=== PATIENT | female | born 1990 | race Caucasian/White ===

== ENCOUNTER 2016-10-02 15:32 | Emergency (ER) | payer OTHER ==
[2016-10-02 15:56] VITALS: RESP 18; TEMP 97.9
--- NOTE | 2016-10-02 16:18 | ED ---
General Adult HPI - General Chief complaint: Dental/Oral Stated complaint: Dental/Oral Time Seen by Provider: 10/02/16 15:41 Source: patient, RN notes reviewed Mode of arrival: ambulatory Limitations: no limitations - History of Present Illness Initial comments: Is a 18-year-old female presents with right lower dental pain. Patient states she thinks her wisdom tooth on the right lower side coming in. Patient states she has noticed some drainage. Patient states she's had chills but no measured fever. Patient is unsure if she could be today. Patient denies any recent fever, chills, shortness breath, chest pain, abdominal pain, nausea/ vomiting/diarrhea, back pain, numbness, tingling, hematuria, headache, or visual changes, or any other complaints. - Related Data Home Medications Medication Instructions Recorded Confirmed Pregabalin [Lyrica] 200 mg PO BID 02/27/14 08/31/14 HYDROcodone/APAP 7.5-325MG [[place] 1 each PO Q4H PRN 08/31/14 08/31/14 7.5-325] Previous Rx's Medication Instructions Recorded Cephalexin [Keflex] 500 mg PO Q6HR #40 cap 08/31/14 Amoxicillin 500 mg PO Q12HR 5 Days 10/02/16 traMADol HCL [Ultram] 50 mg PO Q6HR #8 tab 10/02/16 Allergies Allergy/AdvReac Type Severity Reaction Status Date / Time diphenhydramine HCl Allergy Rash/Hives Verified 10/02/16 15:56 [From Benadryl] Review of Systems ROS Statement: Those systems with pertinent positive or pertinent negative responses have been documented in the HPI. ROS Other: All systems not noted in ROS Statement are negative. Past Medical History Past Medical History: Asthma, Fibromyalgia, Seizure Disorder History of Any Multi-Drug Resistant Organisms: None Reported Past Surgical History: Section Additional Past Surgical History / Comment(s): d &c Past Psychological History: Anxiety, Depression Smoking Status: Current every day smoker Past Alcohol Use History: None Reported Past Drug Use History: None Reported General Exam - General Exam Comments Initial Comments: General: The patient is awake and alert, in no distress, and does not appear acutely ill. Eye: Pupils are equal, round and reactive to light, extra-ocular movements are intact. No nystagmus. There is normal conjunctiva bilaterally. No signs of icterus. Ears: TMs pink and pearly with intact cone of light bilaterally. Normal external ear canals Nose: Nasal turbinates pink and moist Mouth and throat: right lower wisdom tooth appears to be coming in, there is some mild erythema to this area. There were multiple cavities noted on exam. No purulent drainage or odor. There is mild tenderness to palpation of the external right lower jaw. There are moist mucous membranes and no oral lesions. No facial swelling. Neck: The neck is supple, there is no tenderness or JVD. Cardiovascular: There is a regular rate and rhythm. No murmur, rub or gallop is appreciated. Respiratory: Lungs are clear to auscultation, respirations are non-labored, breath sounds are equal. No wheezes, stridor, rales, or rhonchi. Musculoskeletal: Normal ROM, no tenderness. Strength 5/5. Sensation intact. Radial pulses equal bilaterally 2+. Neurological: A&O x 3. CN II-XII intact, There are no obvious motor or sensory deficits. Coordination appears grossly intact. Speech is normal. Skin: Skin is warm and dry and no rashes or lesions are noted. Psychiatric: Cooperative, appropriate mood & affect, normal judgment. Limitations: no limitations Course Vital Signs 10/02/16 10/02/16 15:53 16:23 Temperature 97.9 F Pulse Rate 63 76 Respiratory 18 18 Rate Blood Pressure 159/100 141/97 O2 Sat by Pulse 96 100 Oximetry Medical Decision Making - Medical Decision Making Is a 26-year-old female presents with right-sided dental pain 2 days. On physical exam the right lower wisdom tooth appears to be coming in, there is some mild erythema to this area. There were multiple cavities noted on exam. No purulent drainage or odor. There is mild tenderness to palpation of the external right lower jaw. There are moist mucous membranes and no oral lesions. No facial swelling. Discussed the patient will be put on a course of antibiotics. A urine test was done was negative. Discussed [id number] Tylenol/motrin as needed for any pain. Patient given tramadol for breakthrough pain. Discussed the patient should follow-up with a dentist as soon as possible. Discussed return parameters. Patient was given phone numbers for dental referral. Discussed that patient should follow up with PCP in one to 2 days or return to the [facility] for any worsening symptoms or for any further concerns. Patient was receptive to this plan and patient will be discharged home. - Lab Data Lab Results 10/02/16 Range/Units 16:14 Urine HCG, Qual Not Detected (Not Detectd) Disposition Clinical Impression: Pain, dental Disposition: HOME SELF-CARE Condition: Good Instructions: Toothache (ED) Additional Instructions: Please use antibiotics as prescribed. Please use pain medication as prescribed. Use warm compresses to the area for pain. Please follow-up with dentist as soon as possible. Please follow up with PCP tomorrow or return to the [facility] for any worsening symptoms or for any further concerns.[facility] dental plan: [id number] [place] [address], . [employer]: Have to pay $50 for x-rays and the rest is covered. . Prescriptions: Amoxicillin 500 mg PO Q12HR 5 Days traMADol HCL [Ultram] 50 mg PO Q6HR #8 tab Referrals: Leeroy Lindquist MD [Primary Care Provider] - 1-2 days Time of Disposition: 16:37
[2016-10-02 16:26] VITALS: BP 141/97; PULSE 76
== END 2016-10-02 16:48 | disposition home or self-care (01) ==
LOC: EC 15:32
DX: K08.89 Other specified disorders of teeth and supporting structures (principal); G40.909 Epilepsy, unspecified, not intractable, without status epilepticus; M79.7 Fibromyalgia; F17.200 Nicotine dependence, unspecified, uncomplicated; Z88.8 Allergy status to other drugs, medicaments and biological substances
CPT/HCPCS: 81025; 99282

== ENCOUNTER → 2016-12-11 | Outpatient (CLI) | payer OTHER ==
--- NOTE | 2016-12-11 10:43 | XR ---
EXAMINATION TYPE: XR KUB DATE OF EXAM ORDERED: 12/11/2016 10:33 AM HISTORY: N20.0 stone. COMPARISON: Previous study dated 05/25/2013. FINDINGS: The abdominal gas pattern is normal. There is no evidence of obstruction or free air. No u nusual calcifications are seen. IMPRESSION: NORMAL ABDOMEN.
== END | disposition home or self-care (01) ==
LOC: RADXRMAIN 10:21
PROVIDERS: ATTEND Urology
DX: N20.0 Calculus of kidney (principal)
CPT/HCPCS: 74000

== ENCOUNTER → 2017-01-18 | Outpatient (CLI) | payer OTHER ==
[~2017-01-18] MED LIST: SODIUM CHLORIDE 0.9% 250 ML in EMPTY BAG 1 BAG IV PRN; SODIUM CHLORIDE 0.9% 500 ML in EMPTY BAG 1 BAG IV PRN
[2017-01-18 11:56] VITALS: BP 126/77; PULSE 81; RESP 15; TEMP 98.1
== END ==
LOC: PROCWHC3 11:43
PROVIDERS: ATTEND Family Medicine
DX: N20.0 Calculus of kidney (principal); N39.0 Urinary tract infection, site not specified
CPT/HCPCS: 96365; J0696

== ENCOUNTER 2022-03-18 16:57 | Inpatient (IN) | payer OTHER ==
--- NOTE | 2022-03-18 17:09 | ED ---
General Adult HPI - General Chief complaint: Shortness of Breath Stated complaint: SOB Time Seen by Provider: 03/18/22 17:02 Source: patient, EMS Mode of arrival: EMS Limitations: no limitations - History of Present Illness Initial comments: Patient presents to the ED by ambulance for evaluation. Patient states that she has had increased dyspnea, right-sided chest pain and diffuse abdominal pain since this morning. 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 Patient states that she also has stage II kidney disease. Patient admits to also having a cough since yesterday. Patient denies Covid vaccination. Patient denies trauma or injury, fever or chills, headache, focal numbness/weakness/neuro deficit, neck/arm/jaw/back pain, pleuritic pain, hemoptysis, palpitations, dizziness, nausea/vomiting/diarrhea, constipation, bloody or melanotic stool, dysuria/hematuria/urinary frequency/urinary symptoms, decreased urine output, leg or calf pain, or any other symptoms or complaints. - Related Data Home Medications Medication Instructions Recorded Confirmed Furosemide [Lasix] 40 mg PO BID 03/18/22 03/18/22 Metoprolol Succinate [Metoprolol 25 mg PO DAILY 03/18/22 03/18/22 Succinate ER] Nicotine 7Mg/24Hr Patch [Habitrol] 1 patch TRANSDERM DAILY 03/18/22 03/18/22 lisinopriL [Zestril] 2.5 mg PO DAILY 03/18/22 03/18/22 Allergies Allergy/AdvReac Type Severity Reaction Status Date / Time amoxicillin Allergy Rash/Hives Verified 03/18/22 18:35 diphenhydramine HCl Allergy Anaphylaxis Verified 03/18/22 18:35 [From Benadryl] Penicillins Allergy Rash/Hives Verified 03/18/22 18:35 red dye Allergy Rash/Hives Verified 03/18/22 18:35 Review of Systems ROS Statement: Those systems with pertinent positive or pertinent negative responses have been documented in the HPI. ROS Other: All systems not noted in ROS Statement are negative. Past Medical History Past Medical History: Asthma, Fibromyalgia, Seizure Disorder Additional Past Medical History / Comment(s): OB history: one previous c/s. She has had 2 visits with her ob during this current . CHF, second stage kidney disease, liver issues- Pt is on heart transplant list. History of Any Multi-Drug Resistant Organisms: None Reported Past Surgical History: Section Additional Past Surgical History / Comment(s): d &c Past Psychological History: Anxiety, Depression Smoking Status: Current every day smoker Past Alcohol Use History: None Reported Past Drug Use History: None Reported - Past Family History Mother History Unknown: Yes General Exam Limitations: no limitations General appearance: alert, in no apparent distress Head exam: Present: atraumatic, normocephalic Eye exam: Present: normal appearance, EOMI ENT exam: Present: normal oropharynx, mucous membranes moist Neck exam: Present: other (Trachea is in midline) Respiratory exam: Present: normal lung sounds bilaterally. Absent: respiratory distress, wheezes, rales, rhonchi, stridor, chest wall tenderness Cardiovascular Exam: Present: normal rhythm, tachycardia, normal heart sounds, other (Normal radial pulses bilaterally) GI/Abdominal exam: Present: soft, distended, diminished bowel sounds, other (Moderate generalized abdominal tenderness). Absent: guarding, rebound Extremities exam: Present: other (1+ bilateral lower leg pitting edema; negative Homans sign bilaterally). Absent: tenderness, calf tenderness Neurological exam: Present: alert, oriented X3. Absent: motor sensory deficit Psychiatric exam: Present: normal affect, normal mood Skin exam: Present: warm, dry, intact Course Vital Signs 03/18/22 03/18/22 03/18/22 16:58 17:12 18:13 Temperature 97.7 F Pulse Rate 121 H 128 H Respiratory 24 24 18 Rate Blood Pressure 119/80 126/92 O2 Sat by Pulse 100 100 Oximetry 03/18/22 03/18/22 19:41 21:53 Temperature Pulse Rate 122 H 122 H Respiratory 18 18 Rate Blood Pressure 118/89 113/71 O2 Sat by Pulse 100 100 Oximetry - Reevaluation(s) Reevaluation #1: 03/18/22 21:51 Case, H&P, test results and ED management were discussed with Dr. Ortiz. He accepts hospital admission. He agrees with cardiology consultation and heparin anticoagulation. He has no further recommendations at this time. 03/18/22 21:59 Patient denies development of any new symptoms while in the ED. Patient and sister are aware the patient's test results, and patient agrees with hospital admission at this time. Patient remains alert and breathing comfortably with a normal room air oxygen saturation. EKG Findings - EKG Comments: EKG Findings:: Sinus tachycardia, ventricular rate of 122 bpm, no ectopy, normal OR and QRS intervals, normal QT interval, borderline rightward axis, nonspecific ST and T-wave abnormality Medical Decision Making - Medical Decision Making I suspect that the patient's dyspnea, anasarca and lower extremity edema are likely secondary to CHF due to her peripartum cardiomyopathy. Patient's troponin is mildly elevated. Patient states that her chest pain has improved while in the ED. Patient was given a dose of aspirin and started on an IV heparin drip. Patient is breathing comfortably with a normal room air oxygen saturation. Given the patient's elevated lactic acid level (which I suspect it due to her cardiomyopathy), a small fluid bolus was administered in the ED. Dr. Ortiz was contacted by telephone, and he has accepted hospital admission. - Lab Data Result diagrams: 03/18/22 17:41 03/18/22 17:41 Lab Results 03/18/22 03/18/22 03/18/22 Range/Units 17:41 17:41 17:41 WBC 7.7 (3.8-10.6) k/uL RBC 5.35 (3.80-5.40) m/uL Hgb 11.9 (11.4-16.0) gm/dL Hct 41.5 (34.0-46.0) % MCV 77.6 L (80.0-100.0) fL MCH 22.2 L (25.0-35.0) pg MCHC 28.6 L (31.0-37.0) g/dL RDW 21.9 H (11.5-15.5) % Plt Count 283 (150-450) k/uL MPV 7.9 Neutrophils % 48 % Lymphocytes % 41 % Monocytes % 6 % Eosinophils % 1 % Basophils % 3 % Neutrophils # 3.7 (1.3-7.7) k/uL Lymphocytes # 3.2 (1.0-4.8) k/uL Monocytes # 0.5 (0-1.0) k/uL Eosinophils # 0.1 (0-0.7) k/uL Basophils # 0.2 (0-0.2) k/uL Manual Slide Review Performed Polychromasia Present Hypochromasia Marked Poikilocytosis Slight Poikilocytosis (manual Present Anisocytosis Moderate Microcytosis Moderate PT 14.0 H (9.0-12.0) sec INR 1.3 H (<1.2) APTT 25.3 (22.0-30.0) sec D-Dimer 4.19 H (<0.60) mg/L FEU Sodium 136 L (137-145) mmol/L Potassium 4.8 (3.5-5.1) mmol/L Chloride 99 (98-107) mmol/L Carbon Dioxide 25 (22-30) mmol/L Anion Gap 12 mmol/L BUN 21 H (7-17) mg/dL Creatinine 1.18 H (0.52-1.04) mg/dL Est GFR (CKD-EPI)AfAm 70 (>60 ml/min/1.73 sqM) Est GFR (CKD-EPI)NonAf 61 (>60 ml/min/1.73 sqM) Glucose 83 (74-99) mg/dL Lactic Ac Sepsis Rflx Plasma Lactic Acid Renato (0.7-2.0) mmol/L Calcium 8.9 (8.4-10.2) mg/dL Total Bilirubin 2.3 H (0.2-1.3) mg/dL AST 44 H (14-36) U/L ALT 32 (4-34) U/L Alkaline Phosphatase 93 (38-126) U/L Troponin I (0.000-0.034) ng/mL NT-Pro-B Natriuret Pep pg/mL Total Protein 7.1 (6.3-8.2) g/dL Albumin 3.7 (3.5-5.0) g/dL Lipase 231 (23-300) U/L HCG, Qual Not Detected Urine Color Urine Appearance (Clear) Urine pH (5.0-8.0) Ur Specific [place] (1.001-1.035) Urine Protein (Negative) Urine Glucose (UA) (Negative) Urine Ketones (Negative) Urine Blood (Negative) Urine Nitrite (Negative) Urine Bilirubin (Negative) Urine Urobilinogen (<2.0) mg/dL Ur Leukocyte Esterase (Negative) Urine RBC (0-5) /hpf Urine WBC (0-5) /hpf Ur Squamous Epith Cells (0-4) /hpf Hyaline Casts (0-2) /lpf Urine Mucus (None) /hpf Urine Opiates Screen (NotDetected) Ur Oxycodone Screen (NotDetected) Urine Methadone Screen (NotDetected) Ur Propoxyphene Screen (NotDetected) Ur Barbiturates Screen (NotDetected) U Tricyclic Antidepress (NotDetected) Ur Phencyclidine Scrn (NotDetected) Ur Amphetamines Screen (NotDetected) U Methamphetamines Scrn (NotDetected) U Benzodiazepines Scrn (NotDetected) Urine Cocaine Screen (NotDetected) U Marijuana (THC) Screen (NotDetected) Influenza Type A (PCR) (Not Detectd) Influenza Type B (PCR) (Not Detectd) RSV (PCR) (Not Detectd) SARS-CoV-2 (PCR) (Not Detectd) 03/18/22 03/18/22 03/18/22 Range/Units 17:41 17:41 17:41 WBC (3.8-10.6) k/uL RBC (3.80-5.40) m/uL Hgb (11.4-16.0) gm/dL Hct (34.0-46.0) % MCV (80.0-100.0) fL MCH (25.0-35.0) pg MCHC (31.0-37.0) g/dL RDW (11.5-15.5) % Plt Count (150-450) k/uL MPV Neutrophils % % Lymphocytes % % Monocytes % % Eosinophils % % Basophils % % Neutrophils # (1.3-7.7) k/uL Lymphocytes # (1.0-4.8) k/uL Monocytes # (0-1.0) k/uL Eosinophils # (0-0.7) k/uL Basophils # (0-0.2) k/uL Manual Slide Review Polychromasia Hypochromasia Poikilocytosis Poikilocytosis (manual Anisocytosis Microcytosis PT (9.0-12.0) sec INR (<1.2) APTT (22.0-30.0) sec D-Dimer (<0.60) mg/L FEU Sodium (137-145) mmol/L Potassium (3.5-5.1) mmol/L Chloride (98-107) mmol/L Carbon Dioxide (22-30) mmol/L Anion Gap mmol/L BUN (7-17) mg/dL Creatinine (0.52-1.04) mg/dL Est GFR (CKD-EPI)AfAm (>60 ml/min/1.73 sqM) Est GFR (CKD-EPI)NonAf (>60 ml/min/1.73 sqM) Glucose (74-99) mg/dL Lactic Ac Sepsis Rflx Plasma Lactic Acid Renato 5.5 H* (0.7-2.0) mmol/L Calcium (8.4-10.2) mg/dL Total Bilirubin (0.2-1.3) mg/dL AST (14-36) U/L ALT (4-34) U/L Alkaline Phosphatase (38-126) U/L Troponin I 0.107 H* (0.000-0.034) ng/mL NT-Pro-B Natriuret Pep 27688 pg/mL Total Protein (6.3-8.2) g/dL Albumin (3.5-5.0) g/dL Lipase (23-300) U/L HCG, Qual Urine Color Urine Appearance (Clear) Urine pH (5.0-8.0) Ur Specific [place] (1.001-1.035) Urine Protein (Negative) Urine Glucose (UA) (Negative) Urine Ketones (Negative) Urine Blood (Negative) Urine Nitrite (Negative) Urine Bilirubin (Negative) Urine Urobilinogen (<2.0) mg/dL Ur Leukocyte Esterase (Negative) Urine RBC (0-5) /hpf Urine WBC (0-5) /hpf Ur Squamous Epith Cells (0-4) /hpf Hyaline Casts (0-2) /lpf Urine Mucus (None) /hpf Urine Opiates Screen (NotDetected) Ur Oxycodone Screen (NotDetected) Urine Methadone Screen (NotDetected) Ur Propoxyphene Screen (NotDetected) Ur Barbiturates Screen (NotDetected) U Tricyclic Antidepress (NotDetected) Ur Phencyclidine Scrn (NotDetected) Ur Amphetamines Screen (NotDetected) U Methamphetamines Scrn (NotDetected) U Benzodiazepines Scrn (NotDetected) Urine Cocaine Screen (NotDetected) U Marijuana (THC) Screen (NotDetected) Influenza Type A (PCR) (Not Detectd) Influenza Type B (PCR) (Not Detectd) RSV (PCR) (Not Detectd) SARS-CoV-2 (PCR) (Not Detectd) 03/18/22 03/18/22 03/18/22 Range/Units 18:18 18:52 19:20 WBC (3.8-10.6) k/uL RBC (3.80-5.40) m/uL Hgb (11.4-16.0) gm/dL Hct (34.0-46.0) % MCV (80.0-100.0) fL MCH (25.0-35.0) pg MCHC (31.0-37.0) g/dL RDW (11.5-15.5) % Plt Count (150-450) k/uL MPV Neutrophils % % Lymphocytes % % Monocytes % % Eosinophils % % Basophils % % Neutrophils # (1.3-7.7) k/uL Lymphocytes # (1.0-4.8) k/uL Monocytes # (0-1.0) k/uL Eosinophils # (0-0.7) k/uL Basophils # (0-0.2) k/uL Manual Slide Review Polychromasia Hypochromasia Poikilocytosis Poikilocytosis (manual Anisocytosis Microcytosis PT (9.0-12.0) sec INR (<1.2) APTT (22.0-30.0) sec D-Dimer (<0.60) mg/L FEU Sodium (137-145) mmol/L Potassium (3.5-5.1) mmol/L Chloride (98-107) mmol/L Carbon Dioxide (22-30) mmol/L Anion Gap mmol/L BUN (7-17) mg/dL Creatinine (0.52-1.04) mg/dL Est GFR (CKD-EPI)AfAm (>60 ml/min/1.73 sqM) Est GFR (CKD-EPI)NonAf (>60 ml/min/1.73 sqM) Glucose (74-99) mg/dL Lactic Ac Sepsis Rflx Y Plasma Lactic Acid Renato (0.7-2.0) mmol/L Calcium (8.4-10.2) mg/dL Total Bilirubin (0.2-1.3) mg/dL AST (14-36) U/L ALT (4-34) U/L Alkaline Phosphatase (38-126) U/L Troponin I (0.000-0.034) ng/mL NT-Pro-B Natriuret Pep pg/mL Total Protein (6.3-8.2) g/dL Albumin (3.5-5.0) g/dL Lipase (23-300) U/L HCG, Qual Urine Color Dark Yellow Urine Appearance Cloudy H (Clear) Urine pH 6.0 (5.0-8.0) Ur Specific [place] 1.018 (1.001-1.035) Urine Protein 2+ H (Negative) Urine Glucose (UA) Negative (Negative) Urine Ketones Negative (Negative) Urine Blood Small H (Negative) Urine Nitrite Negative (Negative) Urine Bilirubin 1+ H (Negative) Urine Urobilinogen 4.0 (<2.0) mg/dL Ur Leukocyte Esterase Moderate H (Negative) Urine RBC 6 H (0-5) /hpf Urine WBC 16 H (0-5) /hpf Ur Squamous Epith Cells 4 (0-4) /hpf Hyaline Casts 16 H (0-2) /lpf Urine Mucus Rare H (None) /hpf Urine Opiates Screen Not Detected (NotDetected) Ur Oxycodone Screen Not Detected (NotDetected) Urine Methadone Screen Not Detected (NotDetected) Ur Propoxyphene Screen Not Detected (NotDetected) Ur Barbiturates Screen Not Detected (NotDetected) U Tricyclic Antidepress Not Detected (NotDetected) Ur Phencyclidine Scrn Not Detected (NotDetected) Ur Amphetamines Screen Detected H (NotDetected) U Methamphetamines Scrn Detected H (NotDetected) U Benzodiazepines Scrn Not Detected (NotDetected) Urine Cocaine Screen Not Detected (NotDetected) U Marijuana (THC) Screen Detected H (NotDetected) Influenza Type A (PCR) Not Detected (Not Detectd) Influenza Type B (PCR) Not Detected (Not Detectd) RSV (PCR) Not Detected (Not Detectd) SARS-CoV-2 (PCR) Not Detected (Not Detectd) - Radiology Data Chest x-ray: There is development of cardiomegaly and pleural fluid compared to old exam. Mild heart failure is possible. CT angiography chest with IV contrast: No evidence of pulmonary embolism. Cardiomegaly with pleural effusions probably related to chronic congestive heart failure. No suspicious pulmonary mass. CT abdomen/pelvis with IV contrast: Pleural effusions and abdominal ascites. Subcutaneous edema around the abdomen. This could be anasarca. Also consider chronic congestive heart failure. Delayed images show little renal excretion and suggestive of some degree of renal failure. Heterogeneity in the liver could relate to hepatitis. Critical Care Time Critical Care Time: Yes Total Critical Care Time: 30 Disposition Clinical Impression: Dyspnea, Abdominal pain, Chest pain, Elevated troponin, CHF (congestive heart failure), Polysubstance abuse, Ascites Disposition: ADMITTED IP TO THIS HOSP Condition: Stable Is patient prescribed a controlled substance at d/c from ED?: No Referrals: Leeroy Lindquist MD [Primary Care Provider] - 1-2 days Time of Disposition: 21:52
[2022-03-18 18:26] LABS: HCG,Qualitative Serum Not Detected
[2022-03-18 18:30] LABS: ALT 32 U/L (4-34); AST 44 U/L (14-36); African American GFR (CKD) 70 (>60 ml/min/1.73 sqM); Albumin 3.7 g/dL (3.5-5.0); Alkaline Phosphatase 93 U/L (38-126); Anion Gap 12 mmol/L; Blood Urea Nitrogen 21 mg/dL (7-17); Calcium 8.9 mg/dL (8.4-10.2); Carbon Dioxide 25 mmol/L (22-30); Chloride 99 mmol/L (98-107); Glucose 83 mg/dL (74-99); Lipase 231 U/L (23-300); Non-African American GFR(CKD) 61 (>60 ml/min/1.73 sqM); Potassium 4.8 mmol/L (3.5-5.1); Sodium 136 mmol/L (137-145); Total Bilirubin 2.3 mg/dL (0.2-1.3); Total Protein 7.1 g/dL (6.3-8.2)
[2022-03-18] MEDS ORDERED: MORPHINE SULFATE 4 MG/ML SYRINGE IVP STA (18:31)
[2022-03-18] MEDS ORDERED: ONDANSETRON 4 MG/2 ML VIAL IVP STA (18:33)
[2022-03-18 18:38] LABS: INR 1.3 (<1.2)
[2022-03-18 18:39] LABS: Partial Thromboplastin Time 25.3 sec (22.0-30.0)
--- NOTE | 2022-03-18 18:45 | XR ---
EXAMINATION TYPE: XR chest 2V DATE OF EXAM: 03/18/2022 COMPARISON: 04/15/2014 HISTORY: Short of breath TECHNIQUE: FINDINGS: Heart is enlarged. There is some blunting of the costophrenic angles. There are no hilar ma sses. There is minimal pulmonary congestion. There are chest leads. IMPRESSION: There is development of cardiomegaly and pleural fluid compared to old exam. mild heart f ailure is possible.
[2022-03-18 18:48] LABS: Anisocytosis Moderate; Basophils # (A) 0.2 k/uL (0-0.2); Basophils % (A) 3 %; Eosinophils # (A) 0.1 k/uL (0-0.7); Eosinophils % (A) 1 %; HCT 41.5 % (34.0-46.0); HGB 11.9 gm/dL (11.4-16.0); Hypochromasia Marked; Lymphocytes # (A) 3.2 k/uL (1.0-4.8); Lymphocytes % (A) 41 %; MCH 22.2 pg (25.0-35.0); MCHC 28.6 g/dL (31.0-37.0); MCV 77.6 fL (80.0-100.0); Mean Platelet Volume 7.9; Microcytosis Moderate; Monocytes # (A) 0.5 k/uL (0-1.0); Monocytes % (A) 6 %; Neutrophils # (A) 3.7 k/uL (1.3-7.7); Neutrophils % (A) 48 %; Platelet Count 283 k/uL (150-450); Poikilocytosis Slight; RBC 5.35 m/uL (3.80-5.40); RDW 21.9 % (11.5-15.5); WBC 7.7 k/uL (3.8-10.6)
[2022-03-18] MEDS ORDERED: ASPIRIN 81 MG PO STA (19:03)
[2022-03-18 19:05] LABS: Poikilocytosis (M) Present; Polychromasia Present
[2022-03-18 20:35] LABS: Appearance,Urine Cloudy (Clear); Bilirubin,Urine 1+ (Negative); Blood,Urine Small (Negative); Color,Urine Dark Yellow; Glucose,Urine (UA) Negative (Negative); Hyaline Casts,Urine 16 /lpf (0-2); Ketones,Urine Negative (Negative); Leukocyte Esterase,Urine Moderate (Negative); Mucus,Urine Rare /hpf; Nitrite,Urine Negative (Negative); Protein,Urine 2+ (Negative); RBC,Urine 6 /hpf (0-5); Specific Gravity,Urine 1.018 (1.001-1.035); Squamous Epithelial Cell,Urine 4 /hpf (0-4); WBC,Urine 16 /hpf (0-5)
[2022-03-18 20:53] LABS: Amphetamine Screen,Urine Detected (NotDetected); Barbiturate Screen,Urine Not Detected (NotDetected); Benzodiazepines Screen,Urine Not Detected (NotDetected); Cocaine Screen,Urine Not Detected (NotDetected); Methadone Screen, Urine Not Detected (NotDetected); Opiate Screen,Urine Not Detected (NotDetected); Oxycodone Screen, Urine Not Detected (NotDetected); Phencyclidine Screen,Urine Not Detected (NotDetected); Tricyclic Antidepressant,Urine Not Detected (NotDetected); Urn Cannabinoid Scrn Detected (NotDetected)
--- NOTE | 2022-03-18 21:41 | CT ---
EXAMINATION TYPE: CT chest angio for PE DATE OF EXAM: 03/18/2022 COMPARISON: None HISTORY: chest pain, dyspnea, elevated d-dimer. CT DLP: combined 1509.4 mGycm Automated exposure control for dose reduction was used. CONTRAST: Performed with IV Contrast, patient injected with 80ml mL of Isovue 370. There are Three-D postprocessed images. There are bilateral pleural effusions and larger on the right side. Heart appears slightly enlarged. There is normal contrast opacification of the pulmonary arteries. No filling defect. The thoracic aor ta appears intact. No aneurysm. No mediastinal adenopathy. There are no hilar masses. There is some a telectasis in both lung bases. The thoracic spine is intact. No compression fracture. IMPRESSION: No evidence of pulmonary embolism. Cardiomegaly with pleural effusions probably related to chronic congestive heart failure. No suspicio us pulmonary mass.
--- NOTE | 2022-03-18 21:44 | CT ---
EXAMINATION TYPE: CT abdomen pelvis w con DATE OF EXAM: 03/18/2022 COMPARISON: None HISTORY: abd pain, swelling CT DLP: combined 1509.4 mGycm Automated exposure control for dose reduction was used. CONTRAST: Performed with IV Contrast, patient injected with 80ml mL of Isovue 370. Images obtained from the diaphragm to the floor of the pelvis with IV contrast. There are moderate bilateral pleural effusions. Heart is enlarged. There is evidence for small perica rdial effusion. There is heterogeneity in the liver. No discrete mass seen. Spleen is intact. No great mass. Gallblad eulogio is intact. The bile ducts are not dilated. There is no adrenal mass. Kidneys show normal size and contour. No hydronephrosis. There is normal en hancement of the kidneys. Delayed images show little renal excretion. There is no retroperitoneal dina nopathy. Ureters are not dilated. There is moderate abdominal ascites fluid. Urinary bladder distends smoothly. No inguinal hernia. There is subcutaneous edema around the abdomen. Lumbar vertebra appear intact. No compression fracture. Bony pelvis is intact. The hip joints are intact. IMPRESSION: Pleural effusions and abdominal ascites. Subcutaneous edema around the abdomen. This could be anasarc a. Also consider chronic congestive heart failure. Delayed images show little renal excretion and suggestive of some degree of renal failure. Heterogeneity in the liver could relate to hepatitis.
[2022-03-18] MEDS ORDERED: HEPARIN SODIUM 1,000 UN/ML (10ML VL) IV ONE (21:46)
[2022-03-18] MEDS ORDERED: HEPARIN SODIUM 1,000 UN/ML (10ML VL) IV PRN (21:46)
[2022-03-18] MEDS ORDERED: NALOXONE 0.4 MG/ML 1 ML VIAL IV PRN (21:52)
[2022-03-18] MEDS ORDERED: HEPARIN SOD,PORK IN 0.45% NACL 25,000 UNIT in 0.45% NACL 1 250ML.BAG IV SCH (22:00)
[2022-03-18] MEDS: SODIUM CHLORIDE 0.9% 250 ML IV SCH (22:11)
[2022-03-18 22:32] LABS: INR 1.4 (<1.2); Partial Thromboplastin Time 23.8 sec (22.0-30.0); Prothrombin Time 14.7 sec (9.0-12.0)
[2022-03-18 22:48] LABS: Anisocytosis Moderate; Basophils # (A) 0.1 k/uL (0-0.2); Basophils % (A) 1 %; Eosinophils % (A) 1 %; HCT 37.2 % (34.0-46.0); Hypochromasia Marked; Lymphocytes # (A) 1.7 k/uL (1.0-4.8); Lymphocytes % (A) 28 %; MCH 23.1 pg (25.0-35.0); MCHC 29.6 g/dL (31.0-37.0); MCV 77.8 fL (80.0-100.0); Mean Platelet Volume 7.5; Microcytosis Moderate; Monocytes # (A) 0.3 k/uL (0-1.0); Monocytes % (A) 5 %; Neutrophils # (A) 3.9 k/uL (1.3-7.7); Neutrophils % (A) 65 %; Platelet Count 270 k/uL (150-450); Poikilocytosis Slight; RBC 4.78 m/uL (3.80-5.40); RDW 22.2 % (11.5-15.5)
[2022-03-19] MEDS: SODIUM CHLORIDE 0.9% 250 ML IV SCH ×4 (01:00→01:59)
[2022-03-19] MEDS ORDERED: FUROSEMIDE 10 MG/ML 4 ML VIAL IV STA ×2 (01:29→04:38)
[2022-03-19] MEDS: NICOTINE 7MG/24HR PATCH TRANSDERM SCH ×2 (01:45→09:30)
[2022-03-19 03:48] LABS: Anisocytosis Moderate; Basophils % (A) 1 %; Eosinophils % (A) 1 %; HCT 36.6 % (34.0-46.0); HGB 10.6 gm/dL (11.4-16.0); Hypochromasia Marked; Lymphocytes # (A) 2.2 k/uL (1.0-4.8); Lymphocytes % (A) 39 %; MCH 22.5 pg (25.0-35.0); MCHC 28.9 g/dL (31.0-37.0); MCV 78.1 fL (80.0-100.0); Microcytosis Moderate; Monocytes # (A) 0.3 k/uL (0-1.0); Monocytes % (A) 5 %; Neutrophils # (A) 2.9 k/uL (1.3-7.7); Neutrophils % (A) 52 %; Platelet Count 297 k/uL (150-450); Poikilocytosis Slight; RBC 4.68 m/uL (3.80-5.40); RDW 22.5 % (11.5-15.5); WBC 5.6 k/uL (3.8-10.6)
[2022-03-19 03:52] LABS: INR 1.6 (<1.2); Partial Thromboplastin Time 65.1 sec (22.0-30.0)
[2022-03-19 04:17] LABS: Albumin 3.1 g/dL (3.5-5.0); Calcium 8.7 mg/dL (8.4-10.2); Potassium 4.6 mmol/L (3.5-5.1); Total Bilirubin 2.6 mg/dL (0.2-1.3)
[2022-03-19 04:35] LABS: Glucose,Whole Blood 109 mg/dL (70-110)
[2022-03-19 05:58] LABS: ABG Base Excess 3.2 mmol/L; ABG HCO3 27 mmol/L (21-25); ABG PCO2 35 mmHg (35-45); ABG PH 7.49 (7.35-7.45); ABG PO2 130 mmHg (83-108); ABG TCO2 28 mmol/L (19-24); Allen Test Performed? Yes
[2022-03-19] MEDS ORDERED: METOPROLOL SUCCINATE (ER) 25 MG TAB.ER.24H PO SCH (09:00)
[2022-03-19] MEDS ORDERED: FUROSEMIDE 10 MG/ML 4 ML VIAL IV SCH (09:00)
[2022-03-19] MEDS ORDERED: ACETAMINOPHEN ORAL SUSP 160 MG/5 ML CUP PO PRN (09:08)
[2022-03-19 09:19] VITALS: PULSE 115; TEMP 97.9
--- NOTE | 2022-03-19 09:47 | P.CRDCN ---
History of Present Illness History of present illness: - . HPI: This is a young lady who was recently seen by me at [facility]. She had been diagnosed with peripartum cardiomyopathy and sees Dr. Wyman in the office. Her recent hospitalization was with significant volume overload and she was diuresed aggressively and was advised to be transferred to [address] in view of her cardiomyopathy and need for close follow-up and subsequent plans if her clinical condition deteriorates. I discussed this at length and may transfer arrangements but she has not proceeded with that but no she wants to go to [facility] and transfer arrangements have already been made and she is waiting for a bed. She came into the hospital with complaints of increasing shortness of breath was found to be in heart failure with elevated BNP on IV Lasix. She has no chest pain she feels better her breathing is easier at this time. CT angiogram revealed no evidence of any pulmonary embolism.. RELEVANT PAST MEDICAL HISTORY: cardiomyopathy somewhat noncompliant with medications. MEDICATIONS: See chart ALLERGIES: See chart. REVIEW OF SYSTEMS: See chart. PHYSICIAL EXAM: Vital signs stable there is JVD 1 cm no carotid bruit S1-S2 heard normally no significant murmurs lungs revealed improved air entry abdomen is soft there is evidence of some free fluid in the abdomen and lower extremities reveal bilateral moderate edema and diminished pulses central nervous system revealed no focal deficits. IMPRESSION: 1. Acute on chronic systolic heart failure with a diagnosis of peripartum cardi omyopathy. 2. . 3. . 4. . 5. . RECOMMENDATIONS: I will switch her from IV Lasix to an IV Lasix drip increase the beta dione and lisinopril and proceed with transfer to [facility] for tertiary care for her heart failure in subsequent management.. Past Medical History Past Medical History: Asthma, Fibromyalgia, Seizure Disorder Additional Past Medical History / Comment(s): OB history: 2 previous c/s. CHF, second stage kidney disease, liver issues- Pt is on heart transplant list. History of Any Multi-Drug Resistant Organisms: None Reported Past Surgical History: Section Additional Past Surgical History / Comment(s): d &c , ureter stents Past Anesthesia/Blood Transfusion Reactions: No Reported Reaction Past Psychological History: Anxiety Smoking Status: Current every day smoker Past Alcohol Use History: None Reported Past Drug Use History: None Reported - Past Family History Mother History Unknown: Yes Family Medical History: Cancer Additional Family Medical History / Comment(s): cervical, gallstones Father Family Medical History: CVA/TIA, Hypertension Medications and Allergies Home Medications Medication Instructions Recorded Confirmed Type Furosemide [Lasix] 40 mg PO BID 03/18/22 03/18/22 History Metoprolol Succinate [Metoprolol 25 mg PO DAILY 03/18/22 03/18/22 History Succinate ER] Nicotine 7Mg/24Hr Patch [Habitrol] 1 patch TRANSDERM DAILY 03/18/22 03/18/22 History lisinopriL [Zestril] 2.5 mg PO DAILY 03/18/22 03/18/22 History Allergies Allergy/AdvReac Type Severity Reaction Status Date / Time amoxicillin Allergy Rash/Hives Verified 03/18/22 18:35 diphenhydramine HCl Allergy Anaphylaxis Verified 03/18/22 18:35 [From Benadryl] Penicillins Allergy Rash/Hives Verified 03/18/22 18:35 red dye Allergy Rash/Hives Verified 03/18/22 18:35 Physical Exam Vitals: Vital Signs Temp Pulse Pulse Resp BP BP Pulse Ox 03/19/22 09:00 115 H 31 H 122/83 100 03/19/22 08:00 97.9 F 117 H 17 120/91 100 03/19/22 07:00 116 H 18 120/95 100 03/19/22 06:45 113 H 34 H 120/95 100 03/19/22 06:30 116 H 34 H 128/94 100 03/19/22 06:18 116 H 26 H 03/19/22 06:15 117 H 39 H 124/97 100 03/19/22 06:00 117 H 26 H 124/97 100 03/19/22 05:56 97.2 F L 116 H 20 120/96 100 03/19/22 04:55 03/19/22 04:32 117 H 24 103/64 100 03/19/22 04:20 117 H 26 H 03/19/22 04:00 97.8 F 112 H 26 H 100 03/19/22 02:00 114 H 18 03/18/22 22:10 98.2 F 114 H 18 115/82 97 03/18/22 21:53 122 H 18 113/71 100 03/18/22 19:41 122 H 18 118/89 100 03/18/22 18:13 128 H 18 126/92 100 03/18/22 17:12 24 03/18/22 16:58 97.7 F 121 H 24 119/80 100 FiO2 03/19/22 09:00 03/19/22 08:00 03/19/22 07:00 03/19/22 06:45 03/19/22 06:30 40 03/19/22 06:18 03/19/22 06:15 03/19/22 06:00 40 03/19/22 05:56 40 03/19/22 04:55 40 03/19/22 04:32 03/19/22 04:20 03/19/22 04:00 03/19/22 02:00 03/18/22 22:10 03/18/22 21:53 03/18/22 19:41 03/18/22 18:13 03/18/22 17:12 03/18/22 16:58 Intake and Output 03/18/22 03/19/22 03/19/22 22:59 06:59 14:59 Output Total 400 350 Balance -400 -350 Output: Urine 400 350 Other: Voiding Method Toilet Toilet # Voids 1 Weight 82.508 kg Results 03/19/22 02:53 03/19/22 02:53 Cardiac Enzymes 03/18/22 03/18/22 03/18/22 Range/Units 17:41 17:41 21:58 AST 44 H (14-36) U/L Troponin I 0.107 H* 0.111 H* (0.000-0.034) ng/mL 03/19/22 03/19/22 Range/Units 02:08 02:53 AST 51 H (14-36) U/L Troponin I 0.116 H* (0.000-0.034) ng/mL Coagulation 03/18/22 03/18/22 03/19/22 Range/Units 17:41 21:58 02:53 PT 14.0 H 14.7 H 16.0 H (9.0-12.0) sec APTT 25.3 23.8 65.1 H (22.0-30.0) sec CBC 03/18/22 03/18/22 03/19/22 Range/Units 17:41 21:58 02:53 WBC 7.7 6.0 5.6 (3.8-10.6) k/uL RBC 5.35 4.78 4.68 (3.80-5.40) m/uL Hgb 11.9 11.0 L 10.6 L (11.4-16.0) gm/dL Hct 41.5 37.2 36.6 (34.0-46.0) % Plt Count 283 270 297 (150-450) k/uL Comprehensive Metabolic Panel 03/18/22 03/19/22 Range/Units 17:41 02:53 Sodium 136 L 135 L (137-145) mmol/L Potassium 4.8 4.6 (3.5-5.1) mmol/L Chloride 99 98 (98-107) mmol/L Carbon Dioxide 25 24 (22-30) mmol/L BUN 21 H 24 H (7-17) mg/dL Creatinine 1.18 H 1.31 H (0.52-1.04) mg/dL Glucose 83 125 H (74-99) mg/dL Calcium 8.9 8.7 (8.4-10.2) mg/dL AST 44 H 51 H (14-36) U/L ALT 32 29 (4-34) U/L Alkaline Phosphatase 93 77 (38-126) U/L Total Protein 7.1 6.0 L (6.3-8.2) g/dL Albumin 3.7 3.1 L (3.5-5.0) g/dL Current Medications Generic Name Dose Route Start Last Admin Trade Name Freq PRN Reason Stop Dose Admin Acetaminophen 640 mg 03/19/22 09:08 Acetaminophen Oral Susp 160 Mg/5 Ml Cup PO Q6HR PRN Fever and/ or Pain Furosemide 40 mg 03/19/22 09:00 03/19/22 09:30 Furosemide 10 Mg/Ml 4 Ml Vial IV 40 mg Q12HR MAXIM Administration Heparin Sodium (Porcine) 0 unit 03/18/22 21:46 Heparin Sodium 1,000 Un/Ml (10ml Vl) IV PER PROTOCOL PRN Low PTT Protocol Heparin Sodium/Sodium Chloride 250 mls @ 9.901 mls/hr 03/18/22 22:00 03/18/22 22:08 25,000 unit/ Sodium Chloride IV 12 units/kg/hr .Q24H MAXIM 9.901 mls/hr Administration Protocol 12 UNITS/KG/HR Lisinopril 2.5 mg 03/19/22 09:00 03/19/22 09:30 Lisinopril 2.5 Mg Tab PO 2.5 mg DAILY MAXIM Administration Metoprolol Succinate 25 mg 03/19/22 09:00 03/19/22 09:30 Metoprolol Succinate (Er) 25 Mg Tab.Er.24h PO 25 mg DAILY MAXIM Administration Naloxone HCl 0.2 mg 03/18/22 21:52 Naloxone 0.4 Mg/Ml 1 Ml Vial IV Q2M PRN Opioid Reversal Nicotine 1 patch 03/19/22 01:30 03/19/22 09:30 Nicotine 7mg/24hr Patch TRANSDERM 1 patch DAILY MAXIM Administration Intake and Output 03/18/22 03/19/22 03/19/22 22:59 06:59 14:59 Output Total 400 350 Balance -400 -350 Output: Urine 400 350 Other: Voiding Method Toilet Toilet # Voids 1 Weight 82.508 kg 03/19/22 02:53 03/19/22 02:53
[2022-03-19 10:23] VITALS: BP 111/84; RESP 23
[2022-03-19] MEDS ORDERED: FUROSEMIDE 100 MG in SODIUM CHLORIDE 0.9% 90 ML IV SCH (10:30)
--- NOTE | 2022-03-19 10:52 | P.CNPUL ---
History of Present Illness Consult date: 03/19/22 Requesting physician: Jr Ortiz Jr Reason for consult: dyspnea, hypoxemia, pleural effusion, abnormal CXR/CT Chief complaint: Shortness of breath. History of present illness: Pulmonary/critical care consultation dated 03/19/2022. 31-year-old female seen in the emergency department on March 18. The patient was brought to the emergency room by EMS. She came with increasing shortness of br eath, diffuse abdominal pain, and right-sided chest discomfort. The patient apparently has been diagnosed with peripartum cardiomyopathy in December of this year, after her childbirth. This was her second child. She apparently was told that she required a heart transplantation, but initially did not want one. She apparently now has changed her mind. It is willing to be evaluated, for transplantation among other things, and is scheduled to be transferred to [facility] later today. Currently, the patient's on 4 L nasal cannula. She is getting IV heparin via weight based protocol. She apparently was initially admitted to [address] and a rapid response team was called, and she was transferred to the intensive care unit, early this morning at 4:30. She was placed on BiPAP short period of time. Currently, she is on 4 L. White count 5.6, hemoglobin 10.6, hematocrit 36.6, and platelet count 297,000. PT was 16 with an INR 1.6 and PTT is 61.9. Blood gases on 40% oxygen show pO2 of 1:30, pCO2 35, and pH is 7.49. Sodium 135, potassium 4.6, chlorides 98, CO2 24, with an anion gap 13, BUN 24, and creatinine 1.31. Lactic acid was initially 4.6. Repeat was 3.5. Bilirubin 2.6. Troponin was 0.111 and 0.116. N-terminal proBNP was 29,600. Drug screen was positive for amphetamines, methamphetamines, and marijuana. Chest x-ray was consistent with cardiomegaly, and some mild fluid overload. CT angiogram was negative for pulmonary embolism. CT did reveal bilateral pleural effusions, right greater than left. Review of Systems REVIEW OF SYSTEMS: CONSTITUTIONAL: [Negative.] NEUROLOGIC: [ Negative.] HEENT: [ Negative.] CARDIAC: Right-sided chest pain. PULMONARY: Shortness of breath. GI: Diffuse abdominal discomfort. : [Negative.] RHEUMATOLOGIC: [ Negative.] IMMUNOLOGIC: [ Negative.] ENDOCRINE: [Negative. ] DERMATOLOGIC: [Negative.] Past Medical History Past Medical History: Asthma, Fibromyalgia, Seizure Disorder Additional Past Medical History / Comment(s): OB history: 2 previous c/s. CHF, second stage kidney disease, liver issues- Pt is on heart transplant list. History of Any Multi-Drug Resistant Organisms: None Reported Past Surgical History: Section Additional Past Surgical History / Comment(s): d &c , ureter stents Past Anesthesia/Blood Transfusion Reactions: No Reported Reaction Past Psychological History: Anxiety Smoking Status: Current every day smoker Past Alcohol Use History: None Reported Past Drug Use History: None Reported - Past Family History Mother History Unknown: Yes Family Medical History: Cancer Additional Family Medical History / Comment(s): cervical, gallstones Father Family Medical History: CVA/TIA, Hypertension Medications and Allergies Home Medications Medication Instructions Recorded Confirmed Type Furosemide [Lasix] 40 mg PO BID 03/18/22 03/18/22 History Metoprolol Succinate [Metoprolol 25 mg PO DAILY 03/18/22 03/18/22 History Succinate ER] Nicotine 7Mg/24Hr Patch [Habitrol] 1 patch TRANSDERM DAILY 03/18/22 03/18/22 History lisinopriL [Zestril] 2.5 mg PO DAILY 03/18/22 03/18/22 History Allergies Allergy/AdvReac Type Severity Reaction Status Date / Time amoxicillin Allergy Rash/Hives Verified 03/18/22 18:35 diphenhydramine HCl Allergy Anaphylaxis Verified 03/18/22 18:35 [From Benadryl] Penicillins Allergy Rash/Hives Verified 03/18/22 18:35 red dye Allergy Rash/Hives Verified 03/18/22 18:35 Physical Exam Osteopathic Statement: *. No significant issues noted on an osteopathic structural exam other than those noted in the History and Physical/Consult. Vitals: Vital Signs Temp Pulse Pulse Resp BP BP Pulse Ox 03/19/22 10:00 115 H 23 111/84 100 03/19/22 09:00 115 H 31 H 122/83 100 03/19/22 08:00 97.9 F 117 H 17 120/91 100 03/19/22 07:00 116 H 18 120/95 100 03/19/22 06:45 113 H 34 H 120/95 100 03/19/22 06:30 116 H 34 H 128/94 100 03/19/22 06:18 116 H 26 H 03/19/22 06:15 117 H 39 H 124/97 100 03/19/22 06:00 117 H 26 H 124/97 100 03/19/22 05:56 97.2 F L 116 H 20 120/96 100 03/19/22 04:55 03/19/22 04:32 117 H 24 103/64 100 03/19/22 04:20 117 H 26 H 03/19/22 04:00 97.8 F 112 H 26 H 100 03/19/22 02:00 114 H 18 03/18/22 22:10 98.2 F 114 H 18 115/82 97 03/18/22 21:53 122 H 18 113/71 100 03/18/22 19:41 122 H 18 118/89 100 03/18/22 18:13 128 H 18 126/92 100 03/18/22 17:12 24 03/18/22 16:58 97.7 F 121 H 24 119/80 100 FiO2 03/19/22 10:00 03/19/22 09:00 03/19/22 08:00 03/19/22 07:00 03/19/22 06:45 03/19/22 06:30 40 03/19/22 06:18 03/19/22 06:15 03/19/22 06:00 40 03/19/22 05:56 40 03/19/22 04:55 40 03/19/22 04:32 03/19/22 04:20 03/19/22 04:00 03/19/22 02:00 03/18/22 22:10 03/18/22 21:53 03/18/22 19:41 03/18/22 18:13 03/18/22 17:12 03/18/22 16:58 Intake and Output 03/18/22 03/19/22 03/19/22 22:59 06:59 14:59 Output Total 400 350 Balance -400 -350 Output: Urine 400 350 Other: Voiding Method Toilet Toilet # Voids 1 Weight 82.508 kg No acute distress, oriented 3. Mild tachypnea. No use of accessory muscles or conversational dyspnea. HEENT examination is grossly unremarkable. Neck supple. Full range of motion. No adenopathy thyromegaly or neck vein distention. Cardiovascular examination reveals regular rhythm rate. S1-S2 normal. No S3 or S4. No discernible murmur noted. Heart sounds are distant. Heart rate 115 bpm. Lungs reveal scattered rhonchi and bibasilar crackles. Some dullness at the right lung base. No wheezes. Saturations are 100% on 4 L. Abdomen soft bowel sounds are heard. No masses or tenderness. Extremities are intact. Extremities are cool. No clubbing or edema. Minimal acrocyanosis. Skin is without rash or lesion. Neurologic examination is brief but nonfocal. Results - Laboratory Findings CBC and BMP: 03/19/22 02:53 03/19/22 02:53 ABG ABG pH 7.49 (7.35-7.45) H 03/19/22 05:57 ABG pCO2 35 mmHg (35-45) 03/19/22 05:57 ABG pO2 130 mmHg (83-108) H 03/19/22 05:57 ABG O2 Saturation 100.0 % (94-97) H 03/19/22 05:57 PT/INR, D-dimer PT 16.0 sec (9.0-12.0) H 03/19/22 02:53 INR 1.6 (<1.2) H 03/19/22 02:53 D-Dimer 4.19 mg/L FEU (<0.60) H 03/18/22 17:41 Abnormal lab findings: Abnormal Labs 03/18/22 03/18/22 03/18/22 17:41 17:41 17:41 Hgb MCV 77.6 L MCH 22.2 L MCHC 28.6 L RDW 21.9 H PT 14.0 H INR 1.3 H APTT D-Dimer 4.19 H ABG pH ABG pO2 ABG HCO3 ABG Total CO2 ABG O2 Saturation Sodium 136 L BUN 21 H Creatinine 1.18 H Glucose Plasma Lactic Acid Renato Total Bilirubin 2.3 H AST 44 H Troponin I Total Protein Albumin Urine Appearance Urine Protein Urine Blood Urine Bilirubin Ur Leukocyte Esterase Urine RBC Urine WBC Hyaline Casts Urine Mucus Ur Amphetamines Screen U Methamphetamines Scrn U Marijuana (THC) Screen 03/18/22 03/18/22 03/18/22 17:41 17:41 19:20 Hgb MCV MCH MCHC RDW PT INR APTT D-Dimer ABG pH ABG pO2 ABG HCO3 ABG Total CO2 ABG O2 Saturation Sodium BUN Creatinine Glucose Plasma Lactic Acid Renato 5.5 H* Total Bilirubin AST Troponin I 0.107 H* Total Protein Albumin Urine Appearance Cloudy H Urine Protein 2+ H Urine Blood Small H Urine Bilirubin 1+ H Ur Leukocyte Esterase Moderate H Urine RBC 6 H Urine WBC 16 H Hyaline Casts 16 H Urine Mucus Rare H Ur Amphetamines Screen Detected H U Methamphetamines Scrn Detected H U Marijuana (THC) Screen Detected H 03/18/22 03/18/22 03/18/22 21:58 21:58 21:58 Hgb 11.0 L MCV 77.8 L MCH 23.1 L MCHC 29.6 L RDW 22.2 H PT 14.7 H INR 1.4 H APTT D-Dimer ABG pH ABG pO2 ABG HCO3 ABG Total CO2 ABG O2 Saturation Sodium BUN Creatinine Glucose Plasma Lactic Acid Renato 4.6 H* Total Bilirubin AST Troponin I Total Protein Albumin Urine Appearance Urine Protein Urine Blood Urine Bilirubin Ur Leukocyte Esterase Urine RBC Urine WBC Hyaline Casts Urine Mucus Ur Amphetamines Screen U Methamphetamines Scrn U Marijuana (THC) Screen 03/18/22 03/19/22 03/19/22 21:58 02:08 02:53 Hgb MCV MCH MCHC RDW PT 16.0 H INR 1.6 H APTT 65.1 H D-Dimer ABG pH ABG pO2 ABG HCO3 ABG Total CO2 ABG O2 Saturation Sodium BUN Creatinine Glucose Plasma Lactic Acid Renato Total Bilirubin AST Troponin I 0.111 H* 0.116 H* Total Protein Albumin Urine Appearance Urine Protein Urine Blood Urine Bilirubin Ur Leukocyte Esterase Urine RBC Urine WBC Hyaline Casts Urine Mucus Ur Amphetamines Screen U Methamphetamines Scrn U Marijuana (THC) Screen 03/19/22 03/19/22 03/19/22 02:53 02:53 02:53 Hgb 10.6 L MCV 78.1 L MCH 22.5 L MCHC 28.9 L RDW 22.5 H PT INR APTT D-Dimer ABG pH ABG pO2 ABG HCO3 ABG Total CO2 ABG O2 Saturation Sodium 135 L BUN 24 H Creatinine 1.31 H Glucose 125 H Plasma Lactic Acid Renato 5.8 H* Total Bilirubin 2.6 H AST 51 H Troponin I Total Protein 6.0 L Albumin 3.1 L Urine Appearance Urine Protein Urine Blood Urine Bilirubin Ur Leukocyte Esterase Urine RBC Urine WBC Hyaline Casts Urine Mucus Ur Amphetamines Screen U Methamphetamines Scrn U Marijuana (THC) Screen 03/19/22 03/19/22 03/19/22 05:57 06:34 10:04 Hgb MCV MCH MCHC RDW PT INR APTT 61.9 H D-Dimer ABG pH 7.49 H ABG pO2 130 H ABG HCO3 27 H ABG Total CO2 28 H ABG O2 Saturation 100.0 H Sodium BUN Creatinine Glucose Plasma Lactic Acid Renato 3.1 H* Total Bilirubin AST Troponin I Total Protein Albumin Urine Appearance Urine Protein Urine Blood Urine Bilirubin Ur Leukocyte Esterase Urine RBC Urine WBC Hyaline Casts Urine Mucus Ur Amphetamines Screen U Methamphetamines Scrn U Marijuana (THC) Screen 03/19/22 10:04 Hgb MCV MCH MCHC RDW PT INR APTT D-Dimer ABG pH ABG pO2 ABG HCO3 ABG Total CO2 ABG O2 Saturation Sodium BUN Creatinine Glucose Plasma Lactic Acid Renato 3.5 H* Total Bilirubin AST Troponin I Total Protein Albumin Urine Appearance Urine Protein Urine Blood Urine Bilirubin Ur Leukocyte Esterase Urine RBC Urine WBC Hyaline Casts Urine Mucus Ur Amphetamines Screen U Methamphetamines Scrn U Marijuana (THC) Screen - Diagnostic Findings Chest x-ray: image reviewed CT scan - chest: image reviewed Assessment and Plan Assessment: Peripartum cardiomyopathy, with acute systolic congestive heart failure. History of asthma, mild. Fibromyalgia. History of seizure disorder. Stage II chronic kidney disease. History of ongoing tobacco use with nicotine addiction. Plan: Plan dated 03/19/2022. The patient is currently being evaluated for possible left ventricular assist device and/or cardiac transplantation at [facility]. Initially, the patient apparently was not interested in cardiac transplantation, but now realizes that that is really her best option. She does continue to smoke 3 cigarettes a day. She is wearing a nicotine patch. The patient has been weaned down the 4 L. She has toe tip cyanosis. We'll need to follow the patient make recommendations where appropriate. Prognosis is guarded. Labs, x-rays, medications are all reviewed. Time with Patient: Greater than 30
[2022-03-19 12:14] LABS: Anisocytosis Moderate; Basophils # (A) 0.1 k/uL (0-0.2); Basophils % (A) 1 %; Eosinophils # (A) 0.1 k/uL (0-0.7); Eosinophils % (A) 1 %; HCT 35.7 % (34.0-46.0); HGB 10.2 gm/dL (11.4-16.0); Hypochromasia Marked; Lymphocytes # (A) 2.2 k/uL (1.0-4.8); Lymphocytes % (A) 38 %; MCH 22.2 pg (25.0-35.0); MCHC 28.6 g/dL (31.0-37.0); MCV 77.8 fL (80.0-100.0); Mean Platelet Volume 10.2; Microcytosis Moderate; Monocytes # (A) 0.4 k/uL (0-1.0); Monocytes % (A) 7 %; Neutrophils # (A) 2.9 k/uL (1.3-7.7); Neutrophils % (A) 50 %; Platelet Count 261 k/uL (150-450); Poikilocytosis Slight; RBC 4.59 m/uL (3.80-5.40); RDW 22.2 % (11.5-15.5); WBC 5.9 k/uL (3.8-10.6)
[2022-03-19 13:31] LABS: Polychromasia Present
--- NOTE | 2022-03-19 15:36 | P.HPIM ---
History of Present Illness H&P Date: 03/19/22 Chief Complaint: SOB This is a 31 year old female with a history of peripartum cardiomyopathy. She's been recently hospitalized at [facility] and left AMA before being transferred to [facility] for a possible heart transplant. She has significant Katalina 30 mOBSCENE leading to acute on chronic systolic just of heart failure.She has been noncompliant with follow up and medication. She has a known methamphetamine problem is contributing greatly to her physical symptoms.She complains of increased shortness of breath after leaving AMA and came this time to [facility] for further treatment. She was found in emergency room resting comfortablThey have excepted her once again at [facility] for transfer. Review of Systems All systems: negative Past Medical History Past Medical History: Asthma, Fibromyalgia, Seizure Disorder Additional Past Medical History / Comment(s): OB history: 2 previous c/s. CHF, second stage kidney disease, liver issues- Pt is on heart transplant list. History of Any Multi-Drug Resistant Organisms: None Reported Past Surgical History: Section Additional Past Surgical History / Comment(s): d &c , ureter stents Past Anesthesia/Blood Transfusion Reactions: No Reported Reaction Past Psychological History: Anxiety Smoking Status: Current every day smoker Past Alcohol Use History: None Reported Past Drug Use History: None Reported - Past Family History Mother History Unknown: Yes Family Medical History: Cancer Additional Family Medical History / Comment(s): cervical, gallstones Father Family Medical History: CVA/TIA, Hypertension Medications and Allergies Home Medications Medication Instructions Recorded Confirmed Type Furosemide [Lasix] 40 mg PO BID 03/18/22 03/18/22 History Metoprolol Succinate [Metoprolol 25 mg PO DAILY 03/18/22 03/18/22 History Succinate ER] Nicotine 7Mg/24Hr Patch [Habitrol] 1 patch TRANSDERM DAILY 03/18/22 03/18/22 History lisinopriL [Zestril] 2.5 mg PO DAILY 03/18/22 03/18/22 History Allergies Allergy/AdvReac Type Severity Reaction Status Date / Time amoxicillin Allergy Rash/Hives Verified 03/18/22 18:35 diphenhydramine HCl Allergy Anaphylaxis Verified 03/18/22 18:35 [From Benadryl] Penicillins Allergy Rash/Hives Verified 03/18/22 18:35 red dye Allergy Rash/Hives Verified 03/18/22 18:35 Physical Exam Vitals: Vital Signs Temp Pulse Pulse Resp BP BP Pulse Ox 03/19/22 10:00 115 H 23 111/84 100 03/19/22 09:00 115 H 31 H 122/83 100 03/19/22 08:00 97.9 F 117 H 17 120/91 100 03/19/22 07:00 116 H 18 120/95 100 03/19/22 06:45 113 H 34 H 120/95 100 03/19/22 06:30 116 H 34 H 128/94 100 03/19/22 06:18 116 H 26 H 03/19/22 06:15 117 H 39 H 124/97 100 03/19/22 06:00 117 H 26 H 124/97 100 03/19/22 05:56 97.2 F L 116 H 20 120/96 100 03/19/22 04:55 03/19/22 04:32 117 H 24 103/64 100 03/19/22 04:20 117 H 26 H 03/19/22 04:00 97.8 F 112 H 26 H 100 03/19/22 02:00 114 H 18 03/18/22 22:10 98.2 F 114 H 18 115/82 97 03/18/22 21:53 122 H 18 113/71 100 03/18/22 19:41 122 H 18 118/89 100 03/18/22 18:13 128 H 18 126/92 100 03/18/22 17:12 24 03/18/22 16:58 97.7 F 121 H 24 119/80 100 FiO2 03/19/22 10:00 03/19/22 09:00 03/19/22 08:00 03/19/22 07:00 03/19/22 06:45 03/19/22 06:30 40 03/19/22 06:18 03/19/22 06:15 03/19/22 06:00 40 03/19/22 05:56 40 03/19/22 04:55 40 03/19/22 04:32 03/19/22 04:20 03/19/22 04:00 03/19/22 02:00 03/18/22 22:10 03/18/22 21:53 03/18/22 19:41 03/18/22 18:13 03/18/22 17:12 03/18/22 16:58 Intake and Output 03/19/22 03/19/22 03/19/22 06:59 14:59 22:59 Output Total 400 700 Balance -400 -700 Output: Urine 400 700 Other: Voiding Method Toilet Toilet # Voids 1 - Constitutional General appearance: average body habitus - EENT Eyes: EOMI, PERRLA ENT: normal oropharynx - Neck Neck: no lymphadenopathy, no thyromegaly - Respiratory Respiratory: bilateral: diminished - Cardiovascular Rhythm: regular Heart sounds: normal: S1, S2 Abnormal Heart Sounds: systolic murmur - Gastrointestinal General gastrointestinal: no hepatomegaly, normal bowel sounds, no splenomegaly - Musculoskeletal Musculoskeletal: generalized weakness - Psychiatric Psychiatric: A&O x's 3 Results CBC & Chem 7: 03/19/22 02:55 03/19/22 02:53 Labs: Abnormal Lab Results - Last 24 Hours (Table) 03/18/22 03/18/22 03/18/22 Range/Units 17:41 17:41 17:41 Hgb (11.4-16.0) gm/dL MCV 77.6 L (80.0-100.0) fL MCH 22.2 L (25.0-35.0) pg MCHC 28.6 L (31.0-37.0) g/dL RDW 21.9 H (11.5-15.5) % PT 14.0 H (9.0-12.0) sec INR 1.3 H (<1.2) APTT (22.0-30.0) sec D-Dimer 4.19 H (<0.60) mg/L FEU ABG pH (7.35-7.45) ABG pO2 (83-108) mmHg ABG HCO3 (21-25) mmol/L ABG Total CO2 (19-24) mmol/L ABG O2 Saturation (94-97) % Sodium 136 L (137-145) mmol/L BUN 21 H (7-17) mg/dL Creatinine 1.18 H (0.52-1.04) mg/dL Glucose (74-99) mg/dL Plasma Lactic Acid Renato (0.7-2.0) mmol/L Total Bilirubin 2.3 H (0.2-1.3) mg/dL AST 44 H (14-36) U/L Troponin I (0.000-0.034) ng/mL Total Protein (6.3-8.2) g/dL Albumin (3.5-5.0) g/dL Urine Appearance (Clear) Urine Protein (Negative) Urine Blood (Negative) Urine Bilirubin (Negative) Ur Leukocyte Esterase (Negative) Urine RBC (0-5) /hpf Urine WBC (0-5) /hpf Hyaline Casts (0-2) /lpf Urine Mucus (None) /hpf Ur Amphetamines Screen (NotDetected) U Methamphetamines Scrn (NotDetected) U Marijuana (THC) Screen (NotDetected) 03/18/22 03/18/22 03/18/22 Range/Units 17:41 17:41 19:20 Hgb (11.4-16.0) gm/dL MCV (80.0-100.0) fL MCH (25.0-35.0) pg MCHC (31.0-37.0) g/dL RDW (11.5-15.5) % PT (9.0-12.0) sec INR (<1.2) APTT (22.0-30.0) sec D-Dimer (<0.60) mg/L FEU ABG pH (7.35-7.45) ABG pO2 (83-108) mmHg ABG HCO3 (21-25) mmol/L ABG Total CO2 (19-24) mmol/L ABG O2 Saturation (94-97) % Sodium (137-145) mmol/L BUN (7-17) mg/dL Creatinine (0.52-1.04) mg/dL Glucose (74-99) mg/dL Plasma Lactic Acid Renato 5.5 H* (0.7-2.0) mmol/L Total Bilirubin (0.2-1.3) mg/dL AST (14-36) U/L Troponin I 0.107 H* (0.000-0.034) ng/mL Total Protein (6.3-8.2) g/dL Albumin (3.5-5.0) g/dL Urine Appearance Cloudy H (Clear) Urine Protein 2+ H (Negative) Urine Blood Small H (Negative) Urine Bilirubin 1+ H (Negative) Ur Leukocyte Esterase Moderate H (Negative) Urine RBC 6 H (0-5) /hpf Urine WBC 16 H (0-5) /hpf Hyaline Casts 16 H (0-2) /lpf Urine Mucus Rare H (None) /hpf Ur Amphetamines Screen Detected H (NotDetected) U Methamphetamines Scrn Detected H (NotDetected) U Marijuana (THC) Screen Detected H (NotDetected) 03/18/22 03/18/22 03/18/22 Range/Units 21:58 21:58 21:58 Hgb 11.0 L (11.4-16.0) gm/dL MCV 77.8 L (80.0-100.0) fL MCH 23.1 L (25.0-35.0) pg MCHC 29.6 L (31.0-37.0) g/dL RDW 22.2 H (11.5-15.5) % PT 14.7 H (9.0-12.0) sec INR 1.4 H (<1.2) APTT (22.0-30.0) sec D-Dimer (<0.60) mg/L FEU ABG pH (7.35-7.45) ABG pO2 (83-108) mmHg ABG HCO3 (21-25) mmol/L ABG Total CO2 (19-24) mmol/L ABG O2 Saturation (94-97) % Sodium (137-145) mmol/L BUN (7-17) mg/dL Creatinine (0.52-1.04) mg/dL Glucose (74-99) mg/dL Plasma Lactic Acid Renato 4.6 H* (0.7-2.0) mmol/L Total Bilirubin (0.2-1.3) mg/dL AST (14-36) U/L Troponin I (0.000-0.034) ng/mL Total Protein (6.3-8.2) g/dL Albumin (3.5-5.0) g/dL Urine Appearance (Clear) Urine Protein (Negative) Urine Blood (Negative) Urine Bilirubin (Negative) Ur Leukocyte Esterase (Negative) Urine RBC (0-5) /hpf Urine WBC (0-5) /hpf Hyaline Casts (0-2) /lpf Urine Mucus (None) /hpf Ur Amphetamines Screen (NotDetected) U Methamphetamines Scrn (NotDetected) U Marijuana (THC) Screen (NotDetected) 03/18/22 03/19/22 03/19/22 Range/Units 21:58 02:08 02:53 Hgb (11.4-16.0) gm/dL MCV (80.0-100.0) fL MCH (25.0-35.0) pg MCHC (31.0-37.0) g/dL RDW (11.5-15.5) % PT 16.0 H (9.0-12.0) sec INR 1.6 H (<1.2) APTT 65.1 H (22.0-30.0) sec D-Dimer (<0.60) mg/L FEU ABG pH (7.35-7.45) ABG pO2 (83-108) mmHg ABG HCO3 (21-25) mmol/L ABG Total CO2 (19-24) mmol/L ABG O2 Saturation (94-97) % Sodium (137-145) mmol/L BUN (7-17) mg/dL Creatinine (0.52-1.04) mg/dL Glucose (74-99) mg/dL Plasma Lactic Acid Renato (0.7-2.0) mmol/L Total Bilirubin (0.2-1.3) mg/dL AST (14-36) U/L Troponin I 0.111 H* 0.116 H* (0.000-0.034) ng/mL Total Protein (6.3-8.2) g/dL Albumin (3.5-5.0) g/dL Urine Appearance (Clear) Urine Protein (Negative) Urine Blood (Negative) Urine Bilirubin (Negative) Ur Leukocyte Esterase (Negative) Urine RBC (0-5) /hpf Urine WBC (0-5) /hpf Hyaline Casts (0-2) /lpf Urine Mucus (None) /hpf Ur Amphetamines Screen (NotDetected) U Methamphetamines Scrn (NotDetected) U Marijuana (THC) Screen (NotDetected) 03/19/22 03/19/22 03/19/22 Range/Units 02:53 02:53 02:53 Hgb 10.6 L (11.4-16.0) gm/dL MCV 78.1 L (80.0-100.0) fL MCH 22.5 L (25.0-35.0) pg MCHC 28.9 L (31.0-37.0) g/dL RDW 22.5 H (11.5-15.5) % PT (9.0-12.0) sec INR (<1.2) APTT (22.0-30.0) sec D-Dimer (<0.60) mg/L FEU ABG pH (7.35-7.45) ABG pO2 (83-108) mmHg ABG HCO3 (21-25) mmol/L ABG Total CO2 (19-24) mmol/L ABG O2 Saturation (94-97) % Sodium 135 L (137-145) mmol/L BUN 24 H (7-17) mg/dL Creatinine 1.31 H (0.52-1.04) mg/dL Glucose 125 H (74-99) mg/dL Plasma Lactic Acid Renato 5.8 H* (0.7-2.0) mmol/L Total Bilirubin 2.6 H (0.2-1.3) mg/dL AST 51 H (14-36) U/L Troponin I (0.000-0.034) ng/mL Total Protein 6.0 L (6.3-8.2) g/dL Albumin 3.1 L (3.5-5.0) g/dL Urine Appearance (Clear) Urine Protein (Negative) Urine Blood (Negative) Urine Bilirubin (Negative) Ur Leukocyte Esterase (Negative) Urine RBC (0-5) /hpf Urine WBC (0-5) /hpf Hyaline Casts (0-2) /lpf Urine Mucus (None) /hpf Ur Amphetamines Screen (NotDetected) U Methamphetamines Scrn (NotDetected) U Marijuana (THC) Screen (NotDetected) 03/19/22 03/19/22 03/19/22 Range/Units 02:55 05:57 06:34 Hgb 10.2 L (11.4-16.0) gm/dL MCV 77.8 L (80.0-100.0) fL MCH 22.2 L (25.0-35.0) pg MCHC 28.6 L (31.0-37.0) g/dL RDW 22.2 H (11.5-15.5) % PT (9.0-12.0) sec INR (<1.2) APTT (22.0-30.0) sec D-Dimer (<0.60) mg/L FEU ABG pH 7.49 H (7.35-7.45) ABG pO2 130 H (83-108) mmHg ABG HCO3 27 H (21-25) mmol/L ABG Total CO2 28 H (19-24) mmol/L ABG O2 Saturation 100.0 H (94-97) % Sodium (137-145) mmol/L BUN (7-17) mg/dL Creatinine (0.52-1.04) mg/dL Glucose (74-99) mg/dL Plasma Lactic Acid Renato 3.1 H* (0.7-2.0) mmol/L Total Bilirubin (0.2-1.3) mg/dL AST (14-36) U/L Troponin I (0.000-0.034) ng/mL Total Protein (6.3-8.2) g/dL Albumin (3.5-5.0) g/dL Urine Appearance (Clear) Urine Protein (Negative) Urine Blood (Negative) Urine Bilirubin (Negative) Ur Leukocyte Esterase (Negative) Urine RBC (0-5) /hpf Urine WBC (0-5) /hpf Hyaline Casts (0-2) /lpf Urine Mucus (None) /hpf Ur Amphetamines Screen (NotDetected) U Methamphetamines Scrn (NotDetected) U Marijuana (THC) Screen (NotDetected) 03/19/22 03/19/22 Range/Units 10:04 10:04 Hgb (11.4-16.0) gm/dL MCV (80.0-100.0) fL MCH (25.0-35.0) pg MCHC (31.0-37.0) g/dL RDW (11.5-15.5) % PT (9.0-12.0) sec INR (<1.2) APTT 61.9 H (22.0-30.0) sec D-Dimer (<0.60) mg/L FEU ABG pH (7.35-7.45) ABG pO2 (83-108) mmHg ABG HCO3 (21-25) mmol/L ABG Total CO2 (19-24) mmol/L ABG O2 Saturation (94-97) % Sodium (137-145) mmol/L BUN (7-17) mg/dL Creatinine (0.52-1.04) mg/dL Glucose (74-99) mg/dL Plasma Lactic Acid Renato 3.5 H* (0.7-2.0) mmol/L Total Bilirubin (0.2-1.3) mg/dL AST (14-36) U/L Troponin I (0.000-0.034) ng/mL Total Protein (6.3-8.2) g/dL Albumin (3.5-5.0) g/dL Urine Appearance (Clear) Urine Protein (Negative) Urine Blood (Negative) Urine Bilirubin (Negative) Ur Leukocyte Esterase (Negative) Urine RBC (0-5) /hpf Urine WBC (0-5) /hpf Hyaline Casts (0-2) /lpf Urine Mucus (None) /hpf Ur Amphetamines Screen (NotDetected) U Methamphetamines Scrn (NotDetected) U Marijuana (THC) Screen (NotDetected) Microbiology - Last 24 Hours (Table) 03/18/22 19:20 Urine Culture - Preliminary Urine,Voided Chest x-ray: report reviewed CT scan - chest: report reviewed Thrombosis Risk Factor Assmnt - Choose All That Apply Any of the Below Risk Factors Present?: Yes Each Factor Represents 1 point: Heart failure (<1month), Swollen legs (current) Other Risk Factors: No Other congenital or acquired thrombophilia - If yes, enter type in comment: No Thrombosis Risk Factor Assessment Total Risk Factor Score: 2 Thrombosis Risk Factor Assessment Level: Low Risk Assessment and Plan (1) Acute systolic (congestive) heart failure Status: Acute Code(s): I50.21 - ACUTE SYSTOLIC (CONGESTIVE) HEART FAILURE SNOMED Code(s): 444997142 (2) cardiomyopathy Status: Acute Code(s): O90.3 - PERIPARTUM CARDIOMYOPATHY SNOMED Code(s): 20031656 (3) Polysubstance abuse Status: Acute Code(s): F19.10 - OTHER PSYCHOACTIVE SUBSTANCE ABUSE, UNCOMPLICATED SNOMED Code(s): 746532760 Plan: transfer to [facility]
--- NOTE | 2022-03-19 15:37 | P.DS ---
Providers Date of admission: 03/18/22 21:52 Expected date of discharge: 03/19/22 Attending physician: Jr Ortiz Consults: 03/18/22 21:52 Consult Physician Urgent Consulting Provider: Jb Chatman Consult Reason/Comments: Elevated troponin, CHF Do you want consulting provider notified?: Yes 03/19/22 04:42 Consult Physician Urgent Consulting Provider: Justus Rojas Consult Reason/Comments: ICU management Do you want consulting provider notified?: Yes Primary care physician: Leeroy Lindquist - Discharge Diagnosis(es) (1) Acute systolic (congestive) heart failure Status: Acute (2) cardiomyopathy Status: Acute (3) Polysubstance abuse Status: Acute Hospital Course: patient stabilizd in ICU. Crdiology anf Pulmonology have seen her. [facility] have accepted transfer. Pt will be sent to [facility] for further treatment Patient Condition at Discharge: Stable Plan - Discharge Summary Discharge Rx Participant: No New Discharge Prescriptions: No Action lisinopriL [Zestril] 2.5 mg PO DAILY Nicotine 7Mg/24Hr Patch [Habitrol] 1 patch TRANSDERM DAILY Metoprolol Succinate [Metoprolol Succinate ER] 25 mg PO DAILY Furosemide [Lasix] 40 mg PO BID Discharge Medication List Furosemide [Lasix] 40 mg PO BID 03/18/22 [History] Metoprolol Succinate [Metoprolol Succinate ER] 25 mg PO DAILY 03/18/22 [History] Nicotine 7Mg/24Hr Patch [Habitrol] 1 patch TRANSDERM DAILY 03/18/22 [History] lisinopriL [Zestril] 2.5 mg PO DAILY 03/18/22 [History] Follow up Appointment(s)/Referral(s): Leeroy Lindquist MD [Primary Care Provider] - 2 Weeks Discharge Disposition: OTHER INSTITUTION NOT DEFINED
[2022-03-19] MEDS ORDERED: METOPROLOL TARTRATE 25 MG TAB PO SCH (21:00)
[2022-03-20] MEDS ORDERED: lisinopriL 5 MG TAB PO SCH (09:00)
--- NOTE | 2022-03-22 06:23 | CDI ---
Documentation Clarification Form Date: From: Ibis Hidalgo Phone: Admit Date: 03/18/2022 09:52:00 PM Patient Name: Pippa Bearden Visit Number: [id number] Discharge Date: 03/19/2022 10:48:00 AM ATTENTION: The Clinical Documentation Specialists (CDI) and [facility] Coding Staff appreciate your assistance in clarifying documentation. Please respond to the clarification below the line at the bottom and electronically sign. The CDI & [facility] Coding staff will review the response and follow-up if needed. Please note: Queries are made part of the Legal Health Record. If you have any questions, please contact the author of this message via ITS. Dr. Leeroy Lindquist, Your patient was noted to be hypoxic in Dr Yates consult on 03/19. Based on this information and the findings below, is there an additional diagnosis that is clinically appropriate for this patient? History/Risk Factors: Peripartum cardiomyopathy with acute on chronic systolic CHF, ascites, polysubstance abuse Tobacco use: smokes 3 cigarettes a day Home oxygen: none Clinical Indicators: Becoming more SOB, guppy breathing. Moved to ICU. 03/19 ATeam -Vital signs: HR 113, BP 117/91, RR 26, SPO2 96% ON 4L Lung/Breathing assessment: 03/19 tachypnea 03/19 ABG/CBG: pH 7.49 pO2 35 pCO2 130 Lactate 5.8 Treatment: IV Lasix, CPAP Continuous Pulse ox CPAP 12 Is there an additional diagnosis that is clinically appropriate for this patient? [ ] Acute Hypoxic Respiratory Failure (pO2 <60 mm Hg or SpO2 <91% on room air) [ ] Acute Hypercapnic Respiratory Failure (pCO2 >50 and pH <7.35) [ ] Acute Respiratory Distress [ ] Acute Respiratory Insufficiency [ ] Other Diagnosis, please specify [ X ] Unable to determine MTDD
== END 2022-03-19 10:48 | disposition short-term general hospital (02) | DRG 776 ==
LOC: EC 16:57 → 3SCARD 21:52 → 2SICU 03-19 04:46
PROVIDERS: ADMIT Family Medicine; ATTEND Family Medicine
PROC: 5A09357 Assistance with Respiratory Ventilation, Less than 24 Consecutive Hours, Continuous Positive Airway Pressure (ICD-10-PCS; principal; 2022-03-19)
DX: O90.3 Peripartum cardiomyopathy (principal); I50.23 Acute on chronic systolic (congestive) heart failure; R18.8 Other ascites; Z76.82 Awaiting organ transplant status; F19.10 Other psychoactive substance abuse, uncomplicated; Z20.822 Contact with and (suspected) exposure to COVID-19; Z28.310 Unvaccinated for COVID-19; R09.02 Hypoxemia; N18.2 Chronic kidney disease, stage 2 (mild); J45.909 Unspecified asthma, uncomplicated; M79.7 Fibromyalgia; F17.210 Nicotine dependence, cigarettes, uncomplicated; Z91.19 Patient's noncompliance with other medical treatment and regimen; Z91.128 Patient's intentional underdosing of medication regimen for other reason; Z79.899 Other long term (current) drug therapy; Z86.69 Personal history of other diseases of the nervous system and sense organs; Z98.891 History of uterine scar from previous surgery; Z86.59 Personal history of other mental and behavioral disorders; Z88.0 Allergy status to penicillin; Z88.8 Allergy status to other drugs, medicaments and biological substances; Z91.02 Food additives allergy status; Z82.49 Family history of ischemic heart disease and other diseases of the circulatory system
CPT/HCPCS: 36415; 36600; 71046; 71275; 74177; 80053; 80306; 81001; 82805; 83605; 83690; 83880; 84484; 84703; 85025; 85379; 85610; 85730; 87040; 87086; 87636; 93005; 94660; 96374; 96375; 99291

== ENCOUNTER 2022-05-24 16:29 | Emergency (ER) | payer OTHER ==
[2022-05-24 18:04] VITALS: BP 119/93; PULSE 92; RESP 24; TEMP 98
--- NOTE | 2022-05-24 18:36 | XR ---
EXAMINATION TYPE: XR chest 2V DATE OF EXAM: 05/24/2022 COMPARISON: 03/18/2022 HISTORY: Shortness of breath TECHNIQUE: Frontal and lateral views of the chest are obtained. FINDINGS: There is no focal air space opacity, pleural effusion, or pneumothorax seen. Stable marked cardiomegaly. The osseous structures are intact. IMPRESSION: No acute cardiopulmonary process. Cardiomegaly.
== END 2022-05-24 19:50 | disposition left against medical advice (07) ==
LOC: EC 16:29
DX: Z53.21 Procedure and treatment not carried out due to patient leaving prior to being seen by health care provider (principal)
CPT/HCPCS: 71046; 99499

== ENCOUNTER 2022-05-29 05:55 | Emergency (ER) | payer OTHER ==
[2022-05-29 06:12] VITALS: BP 124/88; PULSE 87; RESP 18; TEMP 98.1
--- NOTE | 2022-05-29 07:33 | XR ---
EXAMINATION TYPE: XR chest 2V DATE OF EXAM: 05/29/2022 6:31 AM COMPARISON: Chest radiographs from 05/24/2022 TECHNIQUE: XR chest 2V Frontal and lateral views of the chest. CLINICAL INDICATION:Female, 32 years old with history of sob; FINDINGS: Lungs/Pleura: Possible trace left pleural effusion, no evidence for focal consolidation or pneumothor ax. Pulmonary vascularity: Unremarkable. Heart/mediastinum: Cardiomediastinal silhouette is enlarged and stable. Musculoskeletal: No acute osseous pathology. IMPRESSION: No acute cardiopulmonary disease/process. No significant change.
== END 2022-05-29 08:00 | disposition left against medical advice (07) ==
LOC: EC 05:55
DX: Z53.21 Procedure and treatment not carried out due to patient leaving prior to being seen by health care provider (principal)
CPT/HCPCS: 71046; 93005; 99499

== ENCOUNTER → 2023-11-28 | Outpatient (CLI) | payer OTHER ==
--- NOTE | 2023-11-28 11:44 | US ---
EXAMINATION TYPE: US venous doppler duplex LE DATE OF EXAM: 11/28/2023 10:15 AM COMPARISON: NONE CLINICAL INDICATION: Female, 33 years old with history of BLE; L03.90 CELLULITIS, UNSPECIFIED; Pt sta cade leg pain and swelling SIDE PERFORMED: Bilateral TECHNIQUE: The lower extremity deep venous system is examined utilizing real time linear array sonog tom with graded compression, doppler sonography and color-flow sonography. VESSELS IMAGED: Common Femoral Vein Deep Femoral Vein Greater Saphenous Vein * Femoral Vein Popliteal Vein Small Saphenous Vein * Proximal Calf Veins (* superficial vessels) Right Leg: Negative for DVT Left Leg: Negative for DVT IMPRESSION: Grayscale, color doppler, spectral doppler imaging performed of the deep veins of the lo wer extremities. There is normal flow, compressibility, vascular waveforms.
--- NOTE | 2023-11-28 12:05 | US ---
EXAMINATION TYPE: US arterial LE single level DATE OF EXAM: 11/28/2023 10:34 AM CLINICAL INDICATION: Female, 33 years old with history of BLE; L03.90 CELLULITIS, UNSPECIFIED; Leg pa in and swelling History of: Smoker: Current Smoker Hypertension: Yes Diabetic: No Hyperlipidemia: No TIA/CVA: No Previous Vascular Surgery: No CAD: No AK: No Vascular Ulcers: No Claudication: No Gangrene: No Doppler Waveforms: Right: Multiphasic Left: Multiphasic Right Brachial Pressure: 122 Left Brachial Pressure: 125 Ankle-Brachial Indices: Right: 1.2 Left: 1.2 (Vessel hardening > 1.4; Normal 0.9 - 1.4, Moderate 0.7 - 0.9, Severe 0.5-0.7) Toe Brachial Indices: Right: 0.7 Left: 0.6 IMPRESSION: 1. Normal ankle-brachial indices bilaterally. 2. Toe brachial indices suggestive of moderate and severe disease.
--- NOTE | 2023-11-28 13:29 | CA ---
Transthoracic Echo Report Name: Pippa Bearden Age: 33 Gender: F : 1990 Exam Date: 11/28/2023 11:49 Exam Location: [place] [facility] Ht (in): 64 Wt (lb): 163 Ordering Physician: Romel Ocampo MD Attending/Referring Phys: Terrence MARX Community Relations Officer Ida Vincent, RD Procedure CPT: Indications: I50.9 CHF Cardiac Hx: Technical Quality: Excellent Contrast 1: Total Dose (mL): Contrast 2: Total Dose (mL): MEASUREMENTS (Male / Female) Normal Values 2D ECHO LV Diastolic Diameter PLAX 6.6 cm 4.2 - 5.9 / 3.9 - 5.3 cm LV Systolic Diameter PLAX 6.0 cm IVS Diastolic Thickness 1.1 cm 0.6 - 1.0 / 0.6 - 0.9 cm LVPW Diastolic Thickness 1.1 cm 0.6 - 1.0 / 0.6 - 0.9 cm LV Relative Wall Thickness 0.3 RV Internal Dim ED PLAX 4.1 cm LA Systolic Diameter LX 4.0 cm 3.0 - 4.0 / 2.7 - 3.8 cm LV Diastolic Volume MOD 4C 145.5 cm??? LV Systolic Volume MOD 4C 132.0 cm??? LV Ejection Fraction MOD 4C 9.2 % LV Cardiac Index MOD 4C 691.0 cm???/min???m??? LV Diastolic Length 4C 7.6 cm LV Systolic Length 4C 7.1 cm LV Diastolic Volume MOD 2C 158.7 cm??? LV Systolic Volume MOD 2C 136.8 cm??? LV Ejection Fraction MOD 2C 13.8 % LV Cardiac Index MOD 2C 1122.2 cm???/min???m??? LV Diastolic Length 2C 7.7 cm LV Systolic Length 2C 7.5 cm LA Volume 75.0 cm??? 18 - 58 / 22 - 52 cm??? LA Volume Index 40.6 cm???/m??? 16 - 28 cm???/m??? M-MODE Aortic Root Diameter MM 2.8 cm DOPPLER AV Peak Velocity 115.4 cm/s AV Peak Gradient 5.3 mmHg MV Area PHT 12.6 cm??? Mitral E Point Velocity 114.9 cm/s Mitral A Point Velocity 71.3 cm/s Mitral E to A Ratio 1.6 MV Deceleration Time 60.3 ms LV E' Lateral Velocity 5.6 cm/s Mitral E to LV E' Lateral Ratio 20.6 LV E' Septal Velocity 3.2 cm/s Mitral E to LV E' Septal Ratio 36.4 TR Peak Velocity 326.0 cm/s TR Peak Gradient 42.5 mmHg Right Ventricular Systolic Press 60.0 mmHg FINDINGS Left Ventricle Left ventricular ejection fraction is estimated at 15 %. Mildly increased septal wall thickness. Mildly increased posterior wall thickness. Severely increased left ventricular diastolic diameter. Severely reduced global left ventricular systolic function. Right Ventricle Severe right ventricular dilatation. Severe pulmonary hypertension. Right ventricular systolic pressure estimated at 60 mm hg. Moderately reduced right ventricular global systolic function. Right Atrium Moderate RA dilatation Left Atrium Moderate LA dilatation. Elevated LA pressure Mitral Valve Structurally normal mitral valve. Mild mitral regurgitation. Aortic Valve Trileaflet aortic valve. No aortic valve stenosis or regurgitation. Tricuspid Valve Structurally normal tricuspid valve. Moderate tricuspid regurgitation. Pulmonic Valve Structurally normal pulmonic valve. Trace to mild pulmonic regurgitation. Pericardium No pericardial effusion. Aorta Normal size aortic root and proximal ascending aorta. CONCLUSIONS Dilated LV cavity. LVEDD 6.6 cm. LVEF 15-20%. Severely reduced global systolic function Grade 3 diastolic function, with signs of elevated LV filling pressures Moderate bilateral dilatation. Elevated LA pressures Dilated RV with reduced function. RVSP [address] Ocampo was notified of the findings via [employer] Attempted to call patient to communicate findings at [phone] (documented phone no.), didnot receive any answer from patient side. Previewed by: Dr Daniel Holman (Electronically Signed) Final Date: 28 November 2023 13:29
== END | disposition home or self-care (01) ==
LOC: RADUSWWP 09:38
PROVIDERS: ATTEND Family Medicine
DX: L03.116 Cellulitis of left lower limb (principal); L03.115 Cellulitis of right lower limb; I11.0 Hypertensive heart disease with heart failure; I50.9 Heart failure, unspecified
CPT/HCPCS: 93306; 93922; 93970

== ENCOUNTER 2024-12-24 07:34 | Emergency (ER) | payer OTHER ==
[2024-12-24 07:41] VITALS: TEMP 98.3
--- NOTE | 2024-12-24 07:47 | ED ---
Lower Extremity Injury HPI - General Source: patient, RN notes reviewed Mode of arrival: wheelchair Limitations: no limitations <Susan Raza - Last Filed: 12/24/24 14:07> <Hawk Scott - Last Filed: 12/25/24 14:22> - General Chief Complaint: Extremity Injury, Lower Stated Complaint: left foot pain, CHF Time Seen by Provider: 12/24/24 07:37 - History of Present Illness Initial Comments: 34-year-old female past medical history significant for heart failure and peripheral artery disease presenting to the ER with left foot pain. Patient states this morning her kitten scratched her. Patient states she takes Lasix 20 mg twice a day, but did not take any today. Denies any fevers, chills, and abdominal pain. (Susan Raza) - Related Data Home Medications Medication Instructions Recorded Confirmed Furosemide [Lasix] 40 mg PO BID 03/18/22 03/18/22 Metoprolol Succinate [Metoprolol 25 mg PO DAILY 03/18/22 03/18/22 Succinate ER] Nicotine 7Mg/24Hr Patch [Habitrol] 1 patch TRANSDERM DAILY 03/18/22 03/18/22 lisinopriL [Zestril] 2.5 mg PO DAILY 03/18/22 03/18/22 Allergies Allergy/AdvReac Type Severity Reaction Status Date / Time amoxicillin Allergy Rash/Hives Verified 05/29/22 06:12 diphenhydramine HCl Allergy Anaphylaxis Verified 05/29/22 06:12 [From Benadryl] Penicillins Allergy Rash/Hives Verified 05/29/22 06:12 red dye Allergy Rash/Hives Verified 05/29/22 06:12 Review of Systems ROS Other: All systems not noted in ROS Statement are negative. Constitutional: Denies: fever, chills Respiratory: Denies: cough, dyspnea Cardiovascular: Denies: chest pain, palpitations Endocrine: Denies: fatigue Gastrointestinal: Denies: nausea, vomiting Neurological: Denies: headache, weakness <Susan Raza - Last Filed: 12/24/24 14:07> ROS Other: All systems not noted in ROS Statement are negative. <Hawk Scott - Last Filed: 12/25/24 14:22> ROS Statement: Those systems with pertinent positive or pertinent negative responses have been documented in the HPI. Past Medical History Past Medical History: Asthma, Heart Failure, Fibromyalgia, Seizure Disorder Additional Past Medical History / Comment(s): OB history: 2 previous c/s. cardiomypathy. CHF, second stage kidney disease, liver issues History of Any Multi-Drug Resistant Organisms: None Reported Past Surgical History: Section Additional Past Surgical History / Comment(s): d &c , ureter stents Past Anesthesia/Blood Transfusion Reactions: No Reported Reaction Past Psychological History: Anxiety Smoking Status: Current every day smoker Past Alcohol Use History: None Reported Past Drug Use History: None Reported - Past Family History Mother History Unknown: Yes Family Medical History: Cancer Additional Family Medical History / Comment(s): cervical, gallstones Father Family Medical History: CVA/TIA, Hypertension <Susan Raza - Last Filed: 12/24/24 14:07> General Exam Limitations: no limitations General appearance: alert, anxious Respiratory exam: Present: normal lung sounds bilaterally. Absent: respiratory distress, wheezes, rales Cardiovascular Exam: Present: regular rate, normal rhythm GI/Abdominal exam: Present: soft Extremities exam: Present: tenderness, pedal edema (1+), other (small scratch noted on dorsal surface of left foot). Absent: calf tenderness <Susan Raza - Last Filed: 12/24/24 14:07> Course Vital Signs 12/24/24 12/24/24 07:35 08:48 Temperature 98.3 F Pulse Rate 116 H 110 H Respiratory 20 18 Rate Blood Pressure 112/77 129/91 O2 Sat by Pulse 97 97 Oximetry Medical Decision Making <Susan Raza - Last Filed: 12/24/24 14:07> <Hawk Scott - Last Filed: 12/25/24 14:22> - Medical Decision Making Was pt. sent in by a medical professional or institution (, PA, [facility], urgent care, hospital, or [place] [facility]...) When possible be specific @ -No Did you speak to anyone other than the patient for history (EMS, parent, family, police, friend...)? What history was obtained from this source @ -No Did you review nursing and triage notes (agree or disagree)? Why? @ -I reviewed and agree with nursing and triage notes Were old charts reviewed (outside hosp., previous admission, EMS record, old EKG, old radiological studies, urgent care reports/EKG's, [place] [facility] records)? Report findings @ -No old charts were reviewed Differential Diagnosis? @ -Cat scratch of lower leg, Pedal edema [place] of CHF, Peripheral artery disease, cellulitis, this is not an all-inclusive list. EKG interpreted by me (3pts min.). @ -As above X-rays interpreted by me (1pt min.). @ -None done CT interpreted by me (1pt min.). @ -None done U/S interpreted by me (1pt. min.). @ -None done What testing was considered but not performed or refused? (CT, X-rays, U/S, labs)? Why? @ -None What meds were considered but not given or refused? Why? @ -None Did you discuss the management of the patient with other professionals (professionals i.e. DrMagda, PA, [facility], lab, RT, psych nurse, social services technician, semiconductor engineer, teacher, licensed loan officer assistant, correctional counselor/case manager)? Give summary @ -Discussed case with the ED attending Dr. Scott. Was smoking cessation discussed for >3mins.? @ -No Was critical care preformed (if so, how long)? @ -No Were there social determinants of health that impacted care today? How? (Homelessness, low income, unemployed, alcoholism, drug addiction, transportation, low edu. Level, literacy, decrease access to med. care, halfway, rehab)? @ -No Was there de-escalation of care discussed even if they declined (Discuss DNR or withdrawal of care, Hospice)? DNR status @ -No What co-morbidities impacted this encounter? (DM, HTN, Smoking, COPD, CAD, Cancer, CVA, ARF, Chemo, Hep., AIDS, mental health diagnosis, sleep apnea, morbid obesity)? @ -None Was patient admitted / discharged? Hospital course, mention meds given and route, prescriptions, significant lab abnormalities, going to OR and other pertinent info. @ -Patient was given 1 dose of Lasix in the ER. Patient will be discharged home with self-care. Undiagnosed new problem with uncertain prognosis? @ -No Drug Therapy requiring intensive monitoring for toxicity (Heparin, Nitro, Insulin, Cardizem)? @ -No Were any procedures done? @ -No Diagnosis/symptom? @ -Left foot pain, cat scratch of lower leg Acute, or Chronic, or Acute on Chronic? @ -Acute Uncomplicated (without systemic symptoms) or Complicated (systemic symptoms)? @ -Uncomplicated Side effects of treatment? @ -No Exacerbation, Progression, or Severe Exacerbation? @ -No Poses a threat to life or bodily function? How? (Chest pain, [place], DC, pneumonia, PE, COPD, DKA, ARF, appy, cholecystitis, CVA, Diverticulitis, Homicidal, Suicidal, threat to staff... and all critical care pts) @ -No (Susan Raza) I personally saw the patient and performed the critical portion of the service. I discussed the patient care with the resident. I directed management, care planning and final disposition of the patient. This includes, but not limited to, review of all lab work, radiological studies, EKG's, consultations, vital signs, and nursing notes. EKG interpreted by me (3pts min.) @As above X-Rays interpreted by me (1 pt min.) @None CT interpreted by me ( 1pt min.) @None U/S interpreted by me (1 pt min.) @None Critical care time of 0 minutes excluding separately billable procedures was spent in conjunction with critical care activities provided by the Resident and Attending simultaneously. I was present during no procedures for all critical portions of the procedure and as immediately available to furnish service during the entire procedure. (Hawk Scott) Disposition Is patient prescribed a controlled substance at d/c from ED?: No Time of Disposition: 08:30 <Susan Raza - Last Filed: 12/24/24 14:07> <Hawk Scott - Last Filed: 12/25/24 14:22> Clinical Impression: Cat scratch of left lower leg, Foot pain, left Disposition: HOME SELF-CARE Additional Instructions: Patient will be discharged home with self-care. Patient to follow-up with PCP in 1 to 2 days. Recommended some bacitracin or Neosporin for cat scratch. Referrals: Romel Ocampo MD [Primary Care Provider] - 1-2 days
[2024-12-24] MEDS: FUROSEMIDE 40 MG TAB PO STA (08:17)
[2024-12-24 08:50] VITALS: BP 129/91; PULSE 110; RESP 18
== END 2024-12-24 08:57 | disposition home or self-care (01) ==
LOC: EC 07:34
DX: M79.672 Pain in left foot (principal); F17.200 Nicotine dependence, unspecified, uncomplicated; Z88.0 Allergy status to penicillin; Z91.041 Radiographic dye allergy status; Z88.8 Allergy status to other drugs, medicaments and biological substances; W55.03XA Scratched by cat, initial encounter
CPT/HCPCS: 99283